=== PATIENT | female | born 1965 | race Caucasian/White ===

== ENCOUNTER 2021-09-02 10:46 | Inpatient (IN) ==
[2021-09-02] MEDS ORDERED: DILTIAZEM 25 MG/5 ML VIAL IV ONE (11:31)
[2021-09-02] MEDS ORDERED: DILTIAZEM 25 MG/5 ML VIAL IV STA (11:35)
[2021-09-02 11:43] LABS: Basophils # 0.1 10*3/uL (0.0-0.2); Basophils % 0.4 % (0.0-0.8); Eosinophils # 0.1 10*3/uL (0.0-0.87); Eosinophils % 0.8 % (0.00-10.9); Hematocrit 42.3 VOL% (35.7-47.0); Hemoglobin 14.1 GM/DL (12.0-16.0); Immature Granulocytes % 0.4 %; Immature Granulocytes Absolute 0.05 #; Lymphocytes % 24.8 % (21.3-54.2); Mean Corpuscular HGB Conc 33.3 GM/DL (32-36); Mean Corpuscular Volume 95.5 FL (87-102); Mean Platelet Volume 9.9 FL (9.6-12.0); Monocytes # 0.7 10*3/uL (0.11-0.8); Monocytes % 6.1 % (1.7-12.7); Neutrophils % 67.5 % (38.7-73.9); Platelet Count 237 T/CUMM (130-400); Red Blood Count 4.43 MC/CUMM (3.8-5.5); Red Cell Distribution Width 11.6 % (9.3-17.3); White Blood Count 11.9 T/CUMM (4-12)
[2021-09-02 12:20] LABS: Albumin 3.6 G/DL (3.4-5.0); Bilirubin,Total 0.4 MG/DL (0.20-1.00); Osmolality,Calculated 285.4 MOS/KG (273-304); Total Protein 7.3 G/DL (6.4-8.2)
[2021-09-02] MEDS ORDERED: SODIUM CHLORIDE 0.9% 1,000 ML IV STA (12:28)
[2021-09-02] MEDS ORDERED: MORPHINE 2 MG/1 ML SYRINGE IV PRN (14:20)
[2021-09-02] MEDS ORDERED: ONDANSETRON 4 MG/2 ML VIAL IV PRN (14:20)
[2021-09-02] MEDS ORDERED: guaiFENesin/DM ER 600-30 MG TABLET PO PRN (14:20)
[2021-09-02] MEDS ORDERED: ACETAMINOPHEN 325 MG TABLET PO PRN (14:20)
[2021-09-02] MEDS ORDERED: ALUMINUM/MAGNES/SIMETH MAX STR 30 ML UDCUP PO PRN (14:20)
[2021-09-02] MEDS ORDERED: hydrALAZINE 20 MG/1 ML VIAL IV PRN (14:20)
[2021-09-02] MEDS ORDERED: MAGNESIUM SULF RIDER 2 GM/50 ML PREMIX IV PRN (14:20)
[2021-09-02] MEDS ORDERED: ZALEPLON 5 MG CAPSULE PO PRN (14:20)
[2021-09-02] MEDS ORDERED: DOCUSATE SODIUM 100 MG CAPSULE PO PRN (14:20)
[2021-09-02] MEDS ORDERED: PROMETHAZINE 25 MG TABLET PO PRN (14:20)
[2021-09-02] MEDS ORDERED: diphenhydrAMINE CAP 25 MG CAPSULE PO PRN (14:20)
[2021-09-02] MEDS ORDERED: MAGNESIUM SULF RIDER 4 GM/100 ML PREMIX IV PRN (14:20)
[2021-09-02] MEDS ORDERED: POTASSIUM CHLORIDE 20 MEQ TABLET PO PRN (14:20)
[2021-09-02] MEDS: DILTIAZEM INJ 100 MG in SODIUM CHLORIDE 0.9% 100 ML IV SCH (16:05)
[2021-09-02] MEDS: RIVAROXABAN 20 MG TABLET PO SCH (17:08)
[2021-09-02] MEDS: DILTIAZEM CD 120 MG CAPSULE PO SCH (21:06)
[2021-09-02] MEDS: AMITRIPTYLINE 10 MG TABLET PO SCH (21:06)
[2021-09-02] MEDS: busPIRone 15 MG TABLET PO SCH (21:06)
[2021-09-03] MEDS: DILTIAZEM INJ 100 MG in SODIUM CHLORIDE 0.9% 100 ML IV SCH (04:30)
[2021-09-03 06:10] LABS: Basophils % 0.4 % (0.0-0.8); Eosinophils # 0.1 10*3/uL (0.0-0.87); Eosinophils % 1.3 % (0.00-10.9); Hematocrit 44.3 VOL% (35.7-47.0); Hemoglobin 14.8 GM/DL (12.0-16.0); Immature Granulocytes % 0.5 %; Immature Granulocytes Absolute 0.05 #; Lymphocytes # 2.8 10*3/uL (1.4-4.0); Lymphocytes % 26.4 % (21.3-54.2); Mean Corpuscular HGB Conc 33.4 GM/DL (32-36); Mean Corpuscular Volume 95.5 FL (87-102); Mean Platelet Volume 10.4 FL (9.6-12.0); Monocytes # 0.7 10*3/uL (0.11-0.8); Monocytes % 6.2 % (1.7-12.7); Neutrophils % 65.2 % (38.7-73.9); Platelet Count 248 T/CUMM (130-400); Red Blood Count 4.64 MC/CUMM (3.8-5.5); Red Cell Distribution Width 11.7 % (9.3-17.3); White Blood Count 10.6 T/CUMM (4-12)
[2021-09-03 06:33] LABS: Calcium 8.7 MG/DL (8.5-10.1); Osmolality,Calculated 285.3 MOS/KG (273-304); Potassium 3.7 MMOL/L (3.5-5.1)
[2021-09-03] MEDS: PANTOPRAZOLE 40 MG TABLET PO SCH (06:41)
[2021-09-03] MEDS ORDERED: PANTOPRAZOLE 40 MG TABLET PO SCH (09:00)
[2021-09-03] MEDS ORDERED: METOPROLOL SUCCINATE XL 100 MG TABLET PO SCH (09:00)
[2021-09-03] MEDS: MAGNESIUM OXIDE 400 MG TABLET PO SCH (09:22)
[2021-09-03] MEDS: busPIRone 15 MG TABLET PO SCH ×2 (09:22→21:03)
[2021-09-03] MEDS: DILTIAZEM 30 MG TABLET PO SCH ×3 (09:57→21:03)
[2021-09-03] MEDS: RIVAROXABAN 20 MG TABLET PO SCH ×2 (15:54→18:03)
[2021-09-03] MEDS: DILTIAZEM CD 120 MG CAPSULE PO SCH (21:03)
[2021-09-03] MEDS: AMITRIPTYLINE 10 MG TABLET PO SCH (21:04)
[2021-09-04] MEDS: PANTOPRAZOLE 40 MG TABLET PO SCH (05:56)
[2021-09-04] MEDS: busPIRone 15 MG TABLET PO SCH (08:04)
[2021-09-04] MEDS: MAGNESIUM OXIDE 400 MG TABLET PO SCH (08:04)
[2021-09-04 08:31] VITALS: BP 136/71
[2021-09-04] MEDS ORDERED: DILTIAZEM CD 120 MG CAPSULE PO SCH (09:00)
[2021-09-04] MEDS ORDERED: POTASSIUM CHLORIDE 10 MEQ TABLET PO SCH (09:00)
[2021-09-04] MEDS ORDERED: METOPROLOL SUCCINATE XL 100 MG TABLET PO SCH (21:00)
== END 2021-09-04 10:59 | disposition home or self-care (01) | DRG 309 ==
LOC: N.EDINP 10:46 → N.ED 10:46 → OBSVTOIN 14:20 → N.TELES 21:37
PROVIDERS: ADMIT Internal Medicine Cardiovascular Disease; ATTEND Internal Medicine Cardiovascular Disease